=== PATIENT | male | born 1960 | race Caucasian/White ===

== ENCOUNTER 2021-03-20 11:47 | Day surgery (SDCO) | payer OTHER ==
[~2021-03-20] VITALS: Ht 177.8 cm; Wt 88.5 kg
[~2021-03-20 11:47] MED LIST: ASPIRIN325 MG PO; COREG3.125 MG PO; DOXYLAMINE SUCCINATE PO; IMDUR 30MG TABL30 MG PO; LIPITOR20 MG PO; LISINOPRIL5 MG PO; NORVASC 5MG TABL5 MG PO; PLAVIX75 MG PO; TRIAMCINOLONE 080 GM TOP
[2021-03-20 13:56] LABS: BILIRUBIN NEGATIVE (NEGATIVE); BLOOD TRACE-INTACT Ery/uL (NEGATIVE); CLARITY CLEAR (CLEAR); COLOR YELLOW (YELLOW); GLUCOSE (U) NORMAL (NORMAL); LEUKOCYTES NEGATIVE Leu/uL (NEGATIVE); NITRITE NEGATIVE (NEGATIVE); PROTEIN NEGATIVE (NEGATIVE); UROBILINOGEN 0.2 mg/dL (0.2-1.0); pH 8.5 (5.0-9.0)
[2021-03-20 13:57] LABS: BASOPHIL 0.7 % (0-2); EOSINOPHIL 0.8 % (0-5); HGB 15.2 g/dl (13.2-18.0); LYMPHOCYTE 13.6 % (15-48); MCH 30.6 pg (25.0-31.0); MCHC 35.3 g/dL (32.0-36.0); MCV 86.5 fL (78.0-100.0); MONOCYTE 5.9 % (0-12); MPV 9.9 fL (6.0-9.5); NEUTROPHIL 78.6 % (41-80); NRBC 0; PLT 163 K/uL (150-400); RBC 4.97 M/uL (4.70-6.00); RDW 11.9 % (11.5-14.0); WBC 7.5 K/uL (4.0-10.5)
[2021-03-20 14:28] LABS: ALBUMIN 3.9 g/dL (3.4-5.0); BILIRUBIN - TOTAL 1.6 mg/dL (0.2-1.0); BUN/CREAT RATIO (CALC) 18.5 RATIO; CREATININE 0.92 mg/dL (0.67-1.17); GLOBULIN (CALCULATION) 3.2 g/dL; POTASSIUM 3.4 mmol/L (3.5-5.1); TOTAL PROTEIN 7.1 g/dL (6.4-8.2)
[2021-03-20 14:34] LABS: URINARY RBC RARE; URINARY WBC RARE
[2021-03-20] MEDS ORDERED: ASPIRIN EC81 MG PO (18:23)
[2021-03-20] MEDS ORDERED: ATORVASTATIN CA40 MG PO (18:24)
[2021-03-20] MEDS ORDERED: PLAVIX75 MG PO (18:24)
[2021-03-20] MEDS ORDERED: COREG 3.125M3.125 MG PO (18:24)
[2021-03-20] MEDS ORDERED: ISOSORBIDE MONO60 MG PO (18:25)
[2021-03-20] MEDS ORDERED: ZESTRIL5 M1 PO (18:25)
[2021-03-20] MEDS ORDERED: NITROGLYCERIN0.4 MG SL (18:26)
[2021-03-21 06:27] LABS: HCT 42.4 % (42.0-52.0); HGB 14.7 g/dl (13.2-18.0); MCH 30.4 pg (25.0-31.0); MCHC 34.7 g/dL (32.0-36.0); MCV 87.8 fL (78.0-100.0); RBC 4.83 M/uL (4.70-6.00); RDW 12.3 % (11.5-14.0); WBC 7.1 K/uL (4.0-10.5)
[2021-03-21 06:43] LABS: ALBUMIN 3.6 g/dL (3.4-5.0); BILIRUBIN - TOTAL 1.2 mg/dL (0.2-1.0); BUN/CREAT RATIO (CALC) 17.7 RATIO; CREATININE 1.13 mg/dL (0.67-1.17); POTASSIUM 3.8 mmol/L (3.5-5.1); TOTAL PROTEIN 6.6 g/dL (6.4-8.2)
[2021-03-21] MEDS ORDERED: ANTIVERT25 MG PO (17:22)
== END 2021-03-21 18:13 | disposition home or self-care (01) ==
LOC: FER 11:47 → FTCU 17:49 → FER 17:52 → FTCU 03-21 18:13
PROVIDERS: Nurse Practitioner; Nurse Practitioner Family; ADMIT Internal Medicine
DX: R42 Dizziness and giddiness (principal); I21.A1 Myocardial infarction type 2; I25.10 Atherosclerotic heart disease of native coronary artery without angina pectoris; I66.22 Occlusion and stenosis of left posterior cerebral artery; M48.02 Spinal stenosis, cervical region; I10 Essential (primary) hypertension; I65.23 Occlusion and stenosis of bilateral carotid arteries; R77.8 Other specified abnormalities of plasma proteins; G47.33 Obstructive sleep apnea (adult) (pediatric); E78.5 Hyperlipidemia, unspecified; I25.2 Old myocardial infarction; M47.812 Spondylosis without myelopathy or radiculopathy, cervical region; Z79.82 Long term (current) use of aspirin; Z79.899 Other long term (current) drug therapy; Z88.7 Allergy status to serum and vaccine; Z20.822 Contact with and (suspected) exposure to COVID-19; Z95.5 Presence of coronary angioplasty implant and graft
CPT/HCPCS: 36415; 70450; 70544; 70551; 71045; 72125; 80053; 80061; 81001; 84484; 85025; 93005; 93880; G0378; J1650; J7120; U0002

== ENCOUNTER 2021-05-28 14:08 | Day surgery (SDCO) | payer OTHER ==
[~2021-05-28] VITALS: Ht 177.8 cm; Wt 90.2 kg
[~2021-05-28 14:08] MED LIST changes: +ANTIVERT25 MG PO; +ASPIRIN EC81 MG PO; +ATORVASTATIN CA40 MG PO; +COREG 3.125M3.125 MG PO; +ISOSORBIDE MONO60 MG PO; +NITROGLYCERIN0.4 MG SL; +ZESTRIL5 M1 PO
[2021-05-28 14:42] LABS: BASOPHIL 0.9 % (0-2); EOSINOPHIL 3.1 % (0-5); HCT 42.7 % (42.0-52.0); HGB 14.8 g/dl (13.2-18.0); LYMPHOCYTE 28.4 % (15-48); MCH 30.7 pg (25.0-31.0); MCHC 34.7 g/dL (32.0-36.0); MCV 88.6 fL (78.0-100.0); MONOCYTE 8.7 % (0-12); MPV 10.3 fL (6.0-9.5); NEUTROPHIL 58.7 % (41-80); NRBC 0; PLT 164 K/uL (150-400); RBC 4.82 M/uL (4.70-6.00); RDW 12.1 % (11.5-14.0); WBC 6.5 K/uL (4.0-10.5)
[2021-05-28 14:47] LABS: INR 1.19 (0.9-1.2); PROTHROMBIN TIME 14.5 SECONDS (11.8-13.4); PTT 29.8 SECONDS (24.4-34.7)
[2021-05-28 15:02] LABS: ALBUMIN 3.7 g/dL (3.4-5.0); BILIRUBIN - TOTAL 0.9 mg/dL (0.2-1.0); GLOBULIN (CALCULATION) 3.2 g/dL; TOTAL PROTEIN 6.9 g/dL (6.4-8.2)
[2021-05-28 15:05] LABS: CKMB 1.3 ng/mL (0.0-3.6)
[2021-05-29 06:17] LABS: BASOPHIL 1.1 % (0-2); EOSINOPHIL 3.4 % (0-5); HCT 41.4 % (42.0-52.0); HGB 14.4 g/dl (13.2-18.0); LYMPHOCYTE 31.5 % (15-48); MCH 30.7 pg (25.0-31.0); MCHC 34.8 g/dL (32.0-36.0); MCV 88.3 fL (78.0-100.0); MONOCYTE 9.9 % (0-12); MPV 10.4 fL (6.0-9.5); NEUTROPHIL 53.9 % (41-80); NRBC 0; PLT 141 K/uL (150-400); RBC 4.69 M/uL (4.70-6.00); RDW 12.4 % (11.5-14.0); WBC 6.2 K/uL (4.0-10.5)
[2021-05-29 06:46] LABS: ALBUMIN 3.5 g/dL (3.4-5.0); BILIRUBIN - TOTAL 1.1 mg/dL (0.2-1.0); BUN/CREAT RATIO (CALC) 18.9 RATIO; CREATININE 1.06 mg/dL (0.67-1.17); GLOBULIN (CALCULATION) 2.7 g/dL; MAGNESIUM 2.7 mg/dL (1.8-2.4); POTASSIUM 3.9 mmol/L (3.5-5.1); TOTAL PROTEIN 6.2 g/dL (6.4-8.2)
--- NOTE | 2021-05-29 12:37 | NUR ---
05/29/21 Mr. Cortez is retired and lives at home with his spouse. He is independent and enjoys golfing. - No discharge planning needs were identified.
== END 2021-05-29 12:30 | disposition home or self-care (01) ==
LOC: FER 14:08 → FTCU 16:19
PROVIDERS: Emergency Medicine; ADMIT Family Medicine
DX: I48.0 Paroxysmal atrial fibrillation (principal); I21.4 Non-ST elevation (NSTEMI) myocardial infarction; I25.10 Atherosclerotic heart disease of native coronary artery without angina pectoris; I25.2 Old myocardial infarction; I10 Essential (primary) hypertension; E78.5 Hyperlipidemia, unspecified; Z20.822 Contact with and (suspected) exposure to COVID-19; Z95.818 Presence of other cardiac implants and grafts; Z88.8 Allergy status to other drugs, medicaments and biological substances; Z79.82 Long term (current) use of aspirin; Z79.01 Long term (current) use of anticoagulants; Z79.899 Other long term (current) drug therapy
CPT/HCPCS: 36415; 71045; 80053; 82553; 83735; 84443; 84484; 85025; 85610; 85730; 93005; 94010; G0378; J3475; U0002